=== PATIENT | female | born 1980 | race Two or more races ===

== ENCOUNTER → 2023-06-21 | Outpatient (CLI) | payer BC ==
[2023-06-21 08:13] LABS: Basophils # (auto) 0 10 ^3/uL (0-0.2); Basophils % (auto) 0.5 % (0.0-2.0); Eosinophils # (auto) 0 10 ^3/uL (0-0.8); Eosinophils % (auto) 1.2 % (0.0-7.0); Hematocrit 40.5 % (36.0-46.0); Hemoglobin 13.2 g/dL (12.2-16.2); Lymphocytes # (auto) 1.4 10 ^3/uL (0.4-5.4); Mean Corpuscular Hemoglobin 27.1 pg (28.0-32.0); Mean Corpuscular Hgb Conc. 32.7 g/dL (32.0-36.0); Mean Corpuscular Volume 82.8 fL (80.0-100.0); Monocytes # (auto) 0.3 10 ^3/uL (0-1.3); Monocytes % (auto) 9.1 % (0.0-12.0); Neutrophils % (auto) 52.2 % (37.0-80.0); Red Blood Cells 4.89 10^6/uL (4.0-5.20); Red Cell Distribution Width 15.4 % (11.8-14.3); White Blood Cell 3.8 10^3/uL (4.4-10.8)
[2023-06-21 08:37] LABS: Alanine Aminotransferase 32 U/L (7-40); Albumin 4.5 g/dL (3.2-4.8); Alkaline Phosphatase 87 U/L (46-116); Anion Gap 7 (5-15); Aspartate Aminotransferase 28 U/L (13-40); BUN/Creatinine Ratio 15.8 (10.0-20.0); Bilirubin, Total 0.7 mg/dL (0.2-1.0); Blood Urea Nitrogen 9 mg/dL (9-23); Calcium 9.3 mg/dL (8.5-10.1); Carbon Dioxide 27 mmol/L (20-30); Chloride 108 mmol/L (98-107); Cholesterol 175 mg/dL (< 200); Glucose 95 mg/dL (74-106); HDL Cholesterol 58 mg/dL (40-59); LDL Cholesterol 107 mg/dL (< 100); Potassium 3.8 mmol/L (3.5-5.1); Sodium 142 mmol/L (136-145); Total Protein 7.4 g/dL (5.7-8.2); Triglycerides 68 mg/dL (< 150)
[2023-06-21 08:38] LABS: % Iron Saturation 14.8 % (15-50)
[2023-06-21 09:01] LABS: Folate (Folic Acid) 19.88 ng/mL (>5.38)
[2023-06-21 09:02] LABS: Free T4 (Free Thyroxine) 1.03 ng/dL (0.89-1.76)
== END | disposition home or self-care (01) ==
LOC: LAB 07:57
PROVIDERS: ATTEND Nurse Practitioner Family
DX: E78.2 Mixed hyperlipidemia (principal); R73.03 Prediabetes; E55.9 Vitamin D deficiency, unspecified; D50.9 Iron deficiency anemia, unspecified; R79.89 Other specified abnormal findings of blood chemistry
CPT/HCPCS: 36415; 80053; 80061; 82306; 82607; 82746; 83036; 83540; 83550; 84439; 84443; 85025

== ENCOUNTER → 2023-11-07 | Outpatient (CLI) | payer BC ==
[2023-11-07 15:12] LABS: Follicle Stimulating Hormone 85.53 IU/L (SEE BELOW); Leuteinizing Hormone 34.9 IU/L
== END | disposition home or self-care (01) ==
LOC: LAB 14:31
PROVIDERS: ATTEND Obstetrics & Gynecology
DX: N95.1 Menopausal and female climacteric states (principal)
CPT/HCPCS: 36415; 82670; 83001; 83002; 84403; 84443

== ENCOUNTER → 2024-06-05 | Outpatient (CLI) | payer BC | END | disposition home or self-care (01) | LOC: LAB 09:44 | PROVIDERS: ATTEND Obstetrics & Gynecology | DX: Z01.419 Encounter for gynecological examination (general) (routine) without abnormal findings (principal); N39.0 Urinary tract infection, site not specified; R10.9 Unspecified abdominal pain | CPT/HCPCS: 87086 ==

== ENCOUNTER 2024-09-13 14:11 | Emergency (ER) | payer BC ==
[~2024-09-13] VITALS: Ht 162.6 cm; Wt 66.2 kg
[2024-09-13] MEDS ORDERED: SODIUM CHLORIDE 0.9% 1,000 ML IV ONE (14:45)
[2024-09-13 15:26] VITALS: BP 107/73; PULSE 70; RESP 16; TEMP 98.3; O2SAT 99
[2024-09-13] MEDS ORDERED: CEPH500C PO (15:32)
--- NOTE | 2024-09-13 15:33 | ED.PDOC ---
History of Present Illness HPI Comments A 43 YEAR OLD FEMALE PRESENTS TO THE ED WITH COMPLAINT OF FOREIGN OBJECT IN RIGHT EAR. PATIENT REPORTS RIGHT EARRING BEING STUCK SINCE THIS MORNING, WITH ASSOCIATED PAIN. PATIENT DENIES FEVER, CHILLS, SHORTNESS OF BREATH, CHEST PAIN, ABDOMINAL PAIN, NAUSEA, VOMITING, HEADACHE, OR OTHER COMPLAINTS. NO OTHER SYMPTOMS OR MODIFYING FACTORS AT THIS TIME. Chief Complaint: EARRING STUCK OF RIGHT EAR LOBE Time Seen by MD: 15:15 Primary Care Provider: SOLITARIO Reviewed Notes: Nurses Notes, Medications, Allergies Allergies: Coded Allergies: NO KNOWN ALLERGIES (Unverified , 09/13/24) Home Meds Active Scripts Cephalexin Monohydrate (Cephalexin) 500 Mg Cap, 1 CAP PO QID, #28 CAP Prov:MARCEL FERNANDEZ 09/13/24 Information Source: Patient Mode of Arrival: Ambulatory Severity: Moderate Duration: Since onset Prehospital treatment: None Medication Refill: For: Other (FOREIGN OBJECT ON RIGHT EAR LOBE ) Past Medical History PAST MEDICAL HISTORY: Denies Surgical History: Denies all surgeries SHOE REPAIRER HELPER History: No Pertinent SHOE REPAIRER HELPER History Social History Smoker: Non-Smoker Alcohol: Denies ETOH Use Drugs: Denies Drug Use Lives In: Home Constitutional: denies: chills, diaphoresis, fatigue, fever, malaise, sweats, weakness, others EENTM: reports: ear pain (RIGHT ), others (FOREIGN OBJECT IN RIGHT EAR); denies: blurred vision, double vision, ear bleeding, ear discharge, ear drainage, ear ringing, eye pain, eye redness, hearing loss, mouth pain, mouth sw elling, nasal discharge, nose bleeding, nose congestion, nose pain, photophobia, tearing, throat pain, throat swelling, voice changes Respiratory: denies: cough, hemoptysis, orthopnea, SOB at rest, shortness of breath, SOB with excertion, stridor, wheezing, others Cardiovascular: denies: chest pain, dizzy spells, diaphoresis, Dyspnea on e xertion, edema, irregular heart beat, left arm pain, lightheadedness, palpitations, PND, syncope, others Gastrointestinal: denies: abdomen distended, abdominal pain, blood streaked bowels, constipated, diarrhea, dysphagia, difficulty swallowing, hematemesis, melena, nausea, poor appetite, poor fluid intake, rectal bleeding, rectal pain, vomiting, others Genitourinary: denies: abnormal vagina bleeding, burning, dyspareunia, dysuria, flank pain, frequency, hematuria, incontinence, pain, , vagina discharge, urgency, others Neurological: denies: dizziness, fainting, headache, left sided numbness, left sided weakness, numbness, paresthesia, pre-existing deficit, right sided numbness, right sided weakness, seizure, speech problems, tingling, tremors, weakness, others Musculoskeletal: denies: back pain, gout, joint pain, joint swelling, muscle pain, muscle stiffness, neck pain, others Integumetry: denies: bruises, change in color, change in hair/nails, dryness, laceration, lesions, lumps, rash, wounds, others Allergic/Immunocompromised: denies: Difficulty Healing, Frequent Infections, Hives, Itching, others Hematologic/Lymphatic: denies: anemia, blood clots, easy bleeding, easy bruising, swollen glands, others Endocrine: denies: excessive hunger, excessive sweating, excessive thirst, excessive urination, flushing, intolerance to cold, intolerance to heat, unexplained weight gain, unexplained weight loss, others Psychiatric: denies: anxiety, bipolar disorder, depression, hopeless, panic disorder, schizophrenia, sleepless, suicidal, others All Other Systems: Reviewed and Negative (NEGATIVE UNLESS OTHERWISE STATED IN HPI OR ABOVE ) Physical Exam General Appearance: No Apparent Distress, Normal HEENT: Normal ENT Inspection, PERRL/EOMI, Pharynx Normal, TMs Normal, Other (A EARRING STUCK ON RIGHT EAR LOBE WITH MILD REDNESS AND TENDERNESS. ) Neck: Full Range of Motion, Non-Tender, Normal, Normal Inspection Respiratory: Chest Non-Tender, Lungs Clear, No Accessory Muscle Use, No Respiratory Distress, Normal Breath Sounds Cardiovascular: No Edema, No JVD, No Murmur, No Gallop, Normal Peripheral Pulses, Regular Rate/Rhythm Breast Exam: Deferred Gastrointestinal: No Organomegaly, Non Tender, No Pulsatile Mass, Normal Bowel Sounds, Soft Genitalia: Deferred Pelvic: Deferred Rectal: Deferred Extremities: No calf tenderness, Normal capillary refill, Normal inspection, Normal range of motion, Non-tender, No pedal edema Musculoskeletal : Apperance: Normal Neurologic: Alert, cross tie tram loader II-XII nml as Tested, No Motor Deficits, Normal Affect, Normal Mood, No Sensory Deficits Cerebellar Function: Normal Reflexes: Normal Skin: Dry, Normal Color, Warm, Other (LOCALIZED REDNESS AND TENDERNESS ON RIGHT EAR LOBE WITH EARRING STUCK, NO PUS DRAINAGE. ) Peripheral Pulses: 2+ carotid (R), 2+ carotid (L) Lymphatic: No Adenopathy Was a procedure done? Was a procedure done?: Yes Sedation Sedation?: Yes Informed consent obtained: Yes Sedation start time: 03:19 Sedation end time: 03:29 Sedation total time: 10 MINUTES Foreign Body Removal Foreign body in: Ear (RIGHT ) Anesthetic: Lidocaine (3ML OF 1%) Prep: Prep, Saline Procedure: Identified (EARRING ), Removed (RIGHT EARRING WITH A FORECEPS. ) Informed consent obtained: No Risks/benefits/alt described: Yes Differential Dx Considerations may include: FOREIGN OBJECT IN RIGHT EARLOBE, RIGHT EARRING REMOVAL X-Ray, Labs, Meds, VS Vital Signs Date Time Temp Pulse Resp B/P (MAP) Pulse Ox O2 Delivery O2 Flow Rate FiO2 09/13/24 15:26 70 16 99 Room Air 09/13/24 15:26 98.3 70 16 107/73 (84) 99 98.3 09/13/24 14:28 98.3 70 16 107/73 (84) 99 98.3 X-Ray, Labs, Meds, VS Comment EXTERNAL MEDICAL RECORDS REVIEWED: [NONE] INDEPENDENT HISTORIANS: [NONE] SOCIAL DETERMINANTS OF HEALTH: [NONE] LABS ORDERED: UA, BMP, CBC REVIEWED AND INTERPRETED RESULTS: NONE IMAGING ORDERED: NONE TREATMENTS ORDERED: LIDOCAINE 1%, HEPLOCK IV, NORMAL SALINE PROCEDURES PERFORMED: FOREIGN OBJECT REMOVAL FROM RIGHT EAR; OBJECT RIGHT EARRING CRITICAL CARE TIME: NONE I HAVE DISCUSSED THE PATIENT WITH THE ATTENDING PHYSICIAN DR. GREEN AND HE AGREES WITH THE PATIENT'S PLAN OF CARE AND DISPOSITION. BASED ON HISTORY OF PRESENT ILLNESS, AND PHYSICAL EXAM, PATIENT WILL BE DISCHARGED HOME. DISCUSSED PLAN FOR DISCHARGE HOME WITH RX KEFLEX ANTIBIOTIC. MEDICATION WARNINGS GIVEN. SHARED DECISION MAKING: DISCUSSED WITH PATIENT THAT THEIR WORKUP WAS NORMAL. PATIENT INSTRUCTED TO FOLLOW UP WITH PRIMARY CARE PROVIDER IN 1-2 DAYS FOR RE- EVALUATION OF SYMPTOMS. PATIENT VERBALIZES UNDERSTANDING TO RETURN TO ED FOR NEW OR WORSENING SYMPTOMS OR IF FOLLOW UP WITH PCP CANNOT BE OBTAINED. PATIENT FEELS COMFORTABLE GOING HOME AT THIS TIME. ALL QUESTIONS ADDRESSED AT TIME OF DISCHARGE. Time of 1ST Reevaluation: 15:46 Reevaluation 1ST: Improved Patient Education/Counseling: Diagnosis, Treatment, Need For Follow Up Family Education/Counseling: Diagnosis, Treatment, Need For Follow Up Medical Screening: No EMC Exist At This Time Departure 1 Departure Time of Disposition: 15:46 Impression: Primary Impression: Embedded earring of right ear Qualified Codes: S00.451A - Superficial foreign body of right ear, initial encounter Additional Impression: Suspected soft tissue infection Disposition: HOME / SELF CARE / HOMELESS Condition: Stable Additional Instructions: FOLLOW-UP WITH PCP IN 1 TO 2 DAYS. TAKE MEDICATIONS PRESCRIBED. RETURN TO ED FOR ANY NEW OR WORSENING SYMPTOMS. e-Prescriptions Cephalexin Monohydrate (Cephalexin) 500 Mg Cap 1 CAP PO QID, #28 CAP Prov: MARCEL FERNANDEZ 09/13/24 Discharged With: Self Critical Care Note Critical Care Time?: No Stability Stability form required: No Heart Score Heart Score: Heart Score Response (Comments) Value History N/A 0 EKG N/A 0 Age N/A 0 Risk Factors N/A 0 Troponin N/A 0 Total 0 I personally scribed for MARCEL FERNANDEZ ([email or web address]) on 09/13/24 at 15:33. Electronically submitted by Marcel Rubi ([email or web address]). MARCEL FERNANDEZ Sep 13, 2024 15:33
== END 2024-09-13 15:37 | disposition home or self-care (01) ==
LOC: ER 14:11
DX: S00.451A Superficial foreign body of right ear, initial encounter (principal); W45.8XXA Other foreign body or object entering through skin, initial encounter; Y93.89 Activity, other specified; Y92.89 Other specified places as the place of occurrence of the external cause; Y99.8 Other external cause status
CPT/HCPCS: 99152

== ENCOUNTER 2024-11-05 20:37 | Emergency (ER) | payer BC ==
[~2024-11-05] VITALS: Ht 162.6 cm; Wt 66.0 kg
[~2024-11-05 20:37] MED LIST: CEPH500C PO
--- NOTE | 2024-11-05 21:23 | ED.PDOC ---
HPI Allergic reaction HPI Comments 44-year-old female presents with a chief complaint of allergic reaction x onset 08:30pm. Patient mentions that she had a large tattoo done today from roughly 10am to 5pm today was the length of the session. Patient states that she was sitting watching TV when she began to feel hot all over and developed welts to her lower abdomen, chest, armpits, neck and arms. Patient reports that she took 25mg Benadryl and Ranitidine. Patient states that after administration of medications she is feeling improvement of symptoms. Patient denies any dizziness, weakness, SOB, or chest pain. Patient only has a known latex allergy. Vitals: temperature of 98.6F, pulse of 84, respiratory rate of 18, blood pr essure of 123/77, SpO2 of 98%RA PMHx: Denies PSHx: Denies Allergies: Latex HPI: Poor Historian. REVIEW OF SYSTEMS: CONSTITUTIONAL: Denies acute: fever, diaphoresis, chills, generalized weakness. HEAD: Denies acute: headache, photophobia Eyes: Denies acute: Double vision, vision loss, eye pain, eye discharge. EARS: Denies acute: tinnitus, hearing loss, ear discharge, ear pain, THROAT: Denies acute: sore throat, swelling, difficulty swallowing , pain with swallowing, change in voice. NECK: Denies acute: neck pain, neck swelling, stiff neck. HEART: Denies acute : chest pain, palpitations, LUNGS: Denies acute: SOB, wheezing, cough, hemoptysis ABDOMEN: Denies acute: abdominal pain, Nausea, Vomiting, diarrhea, melena , hematemesis, hematochezia SKIN: Denies acute: lesions, EXTREMITIES: Denies acute: calf pain, numbness, tingling, weakness, denies pain in extremity. Denies acute: Low back pain. Neuro: Denies acute: focal neurological deficit, motor or sensory focal neurological d eficit, tremors, seizure like activity, confusion, dizziness, change in mental status, loss of bowel or bladder function, cauda equina like symptoms. : Denies acute: dysuria, hematuria, flank pain, increase in urinary frequency. PSYCH: Denies acute: hallucination, suicidal ideation, homicidal ideation. FEMALE: Denies acute: abnormal vaginal bleeding, foul odor, unusual discharge. PHYSICAL EXAM: General: ----no----acute distress, awake and alert. Head: normocephalic, atraumatic. Neck: supple, trachea is midline, no swelling. Throat: Normal phonation. No swelling, no obstruction, Eyes:, no erythema, no purulent discharge, no proptosis, no icterus. Heart: regular rate, regular rhythm, no significant murmur appreciated. Lungs: no apparent respiratory distress, Able to speak in full sentences. No wheezing, no rhonchi, no crackles. No stridors Clear to auscultation bilaterally. Abdomen: non tender to palpation, non distended, soft, no guarding, no rebound, + bowel sounds. Neuro: Awake, Alert, oriented to name, self, situation, follows commands GCS=15. Speech is normal. Skin: no petechia, no purpura, no cyanosis, non-pale, not jaundice. Minimal residual redness still in some of the extremities and on the chest. Lower extremities: --no - Pitting edema no deformity, no focal swelling, no calf TTP. Makes eye contact. moves all four extremities. Face: no apparent facial droop. Ambulating in the ED independently. ED COURSE: Time Seen by MD: 21:13 Primary Care Provider: SOLITARIO Reviewed Notes: Nurses Notes, Medications, Allergies Allergies: Coded Allergies: Latex (Verified Allergy, Unknown, 11/05/24) Home Meds Active Scripts Prednisone (Prednisone) 20 Mg Tab, 40 MG PO DAILY for 5 Days, #10 TAB Prov:JARRED WESTON DO 11/05/24 Cephalexin Monohydrate (Cephalexin) 500 Mg Cap, 1 CAP PO QID, #28 CAP Prov:MARCEL FERNANDEZ 09/13/24 Past Medical History PAST MEDICAL HISTORY: Denies Surgical History: Denies all surgeries MSW History: No Pertinent MSW History Social History Smoker: Non-Smoker Alcohol: Denies ETOH Use Drugs: Denies Drug Use Lives In: Home Was a procedure done? Was a procedure done?: No Differential diagnosis (all) Differential Diagnosis: Anaphylaxis, Angioedema, Bronchospasm, Contact Dermatitis, Drug Reaction, Hypotension, Renal Failure, Respiratory Failure, Shock, Urticaria X-Ray, Labs, Meds, VS Vital Signs Date Time Temp Pulse Resp B/P (MAP) Pulse Ox O2 Delivery O2 Flow Rate FiO2 11/05/24 23:42 65 21 99 Room Air 11/05/24 23:42 98.7 65 21 110/78 (89) 99 98.7 11/05/24 21:25 98.6 84 18 123/77 (92) 97 98.6 11/05/24 21:25 18 100 Room Air* 0 21 11/05/24 21:25 18 98 Room Air* 0 21 Lab Test 11/05/24 21:16 Range/Units White Blood Count 9.7 4.4-10.8 10^3/uL Red Blood Count 5.47 H 4.0-5.20 10^6/uL Hemoglobin 11.3 L 12.2-16.2 g/dL Hematocrit 36.3 36.0-46.0 % Mean Corpuscular Volume 66.4 L 80.0-100.0 fL Mean Corpuscular Hemoglobin 20.7 L 28.0-32.0 pg Mean Corpuscular Hemoglobin Concent 31.2 L 32.0-36.0 g/dL Red Cell Distribution Width 19.0 H 11.8-14.3 % Platelet Count 322 140-450 10^3/uL Mean Platelet Volume 7.8 6.9-10.8 fL Neutrophils (%) (Auto) 81.2 H 37.0-80.0 % Lymphocytes (%) (Auto) 13.3 10.0-50.0 % Monocytes (%) (Auto) 5.2 0.0-12.0 % Eosinophils (%) (Auto) 0.2 0.0-7.0 % Basophils (%) (Auto) 0.1 0.0-2.0 % Neutrophils # (Auto) 7.9 1.6-8.6 10 ^3/uL Lymphocytes # (Auto) 1.3 0.4-5.4 10 ^3/uL Monocytes # (Auto) 0.5 0-1.3 10 ^3/uL Eosinophils # (Auto) 0 0-0.8 10 ^3/uL Basophils # (Auto) 0 0-0.2 10 ^3/uL Nucleated Red Blood Cells 0.1 % Sodium Level 141 136-145 mmol/L Potassium Level 3.7 3.5-5.1 mmol/L Chloride Level 108 H 98-107 mmol/L Carbon Dioxide Level 24 20-31 mmol/L Anion Gap 9 5-15 Blood Urea Nitrogen 13 9-23 mg/dL Creatinine 0.71 0.550-1.02 mg/dL Glomerular Filtration Rate Calc 107 >90 mL/min BUN/Creatinine Ratio 18.3 10.0-20.0 Serum Glucose 144 H 74-106 mg/dL Calcium Level 10.1 8.7-10.4 mg/dL Total Bilirubin 0.5 0.2-1.0 mg/dL Aspartate Amino Transferase (AST) 22 13-40 U/L Alanine Aminotransferase (ALT) 19 7-40 U/L Alkaline Phosphatase 100 46-116 U/L Troponin I High Sensitivity < 3 L </=34 ng/L Total Protein 7.9 5.7-8.2 g/dL Albumin 4.9 H 3.2-4.8 g/dL Current Medications Medications (Trade) Dose Ordered Sig/Dedrick Route Start Time Stop Time Status Last Admin Albuterol (Ventolin Medneb) 2.5 mg ONCE ONCE NEB 11/05/24 21:15 11/05/24 21:16 DC 11/05/24 21:25 Methylprednisolone Sodium Succinate (Solu Medrol) 125 mg ONCE ONCE IV 11/05/24 21:15 11/05/24 21:16 DC 11/05/24 22:25 Famotidine (Pepcid Injection) 20 mg ONCE ONCE IV 11/05/24 21:15 11/05/24 21:16 DC 11/05/24 22:25 Diphenhydramine HCl (Benadryl Injection) 25 mg ONCE ONCE IV 11/05/24 21:15 11/05/24 21:16 DC 11/05/24 22:25 Sodium Chloride 1,000 ml @ 1,000 mls/hr Q1H ONCE IV 11/05/24 21:15 11/05/24 22:14 DC 11/05/24 21:[address] [address] Ph: [phone] DIAGNOSTIC IMAGING Diagnostic Imaging Report : [id number] Signed PATIENT: ZAY ALBERTS ACCT: [id number] UNIT: [id number] : 1980 LOC: ER ROOM / BED: / AGE / SEX: 44 / F ADM STATUS: REG ER SERVICE 10 ORDERING PHYSICIAN: JARRED WESTON DO PROCEDURE(s): CXRP - CHEST PORTABLE REASON: Allergic reaction ORDER NUMBER(s): [id number], ACCESSION NUMBER(s): [id number] CHEST RADIOGRAPH Indication: Allergic reaction Technique: Single frontal view of the chest was obtained Comparison: None FINDINGS: Lines and Tubes: None Lungs: No focal consolidation. Pleura: No effusion. No pneumothorax. Cardiomediastinal contours: Unremarkable Bones: No acute osseous abnormality. IMPRESSION: 1. No acute cardiopulmonary disease. ATED BY: MONA YANG Jr., DO DICTATED DATE/TIME: 11/05/242136 SIGNED BY: MONA YANG Jr., SIGNED DATE/TIME: 11/05/242136 CC: Time of 1ST Reevaluation: 21:43 Reevaluation 1ST: Unchanged Time of 2ND Reevaluation: 22:27 Reevaluation 2ND: Improved Time of 3RD Reevaluation: 23:23 Reevaluation 3RD: Resolved Patient Education/Counseling: Diagnosis, Treatment Family Education/Counseling: No Family Present Comments Patient presented with the above HPI.---allergic reaction---workup was initiated. patient was found with the above mentioned diagnosis. the following medications were ordered: please refer to order lists of meds and tests obtained by myself Dr. Weston. Patient ED course and VS have been stabilized. Patient has been reassessed in the ED and remained in a stable condition. Pertinent incidental findings were discussed with the patient and/or family. Patient/family voices understanding and is agreeable with plan. Patient has been observed in the ED adequate length of time to insure improvement/stability. Escalation of care considered: Consideration of escalation to observation or admission Patient was DISCHARGED home in a stable condition. All the reports of any imaging studies that were ordered by myself were reviewed by myself. Departure 1 Departure Time of Disposition: 23:23 Impression: Primary Impression: Allergic reaction Additional Impression: Hives Disposition: 01 HOME / SELF CARE / HOMELESS Condition: Stable Additional Instructions: Additional instructions: You MUST follow-up with your primary care/family doctor in 1 to 2 days. If you are unable to see your primary care/family doctor, please return to our emergency room for re-assessment and re-evaluation in 1 to 2 days. Return to the emergency room here in our facility or to the nearest ER [facility] if your symptoms change or worsen. CONSULTATIONS: you MUST Follow-up for consultation as soon as possible with: -custodian manager in 1-2 days. Please call for appointment. You MUST call the consultants office yourself to make an appointment. You may need to arrange that through your insurance and/or your primary/family doctor. If you are unable to see the digital media sales consultant in 1 to 2 days, you must return to our emergency room (or any other ER of your choice) for re-assessment and re- evaluation. Adequate fluid hydration. Take the following [id number] medications daily for the next five days: Pepcid 20 mg one pill by mouth daily for the next five days Benadryl 25 mg one pill by mouth daily for the next five days You stated you already have an EpiPen at home e-Prescriptions Prednisone (Prednisone) 20 Mg Tab 40 MG PO DAILY for 5 Days, #10 TAB Prov: JARRED WESTON DO 11/05/24 Discharged With: Self Critical Care Note Critical Care Time?: Yes (30 min-critical care time only) I personally scribed for JARRED WESTON DO ([email or web address]) on 11/05/24 at 21:23. Electronically submitted by Masood Boswell ([email or web address]). I personally scribed for JARRED WESTON DO ([email or web address]) on 11/05/24 at 23:22. Electronically submitted by Marcel Rubi [email or web address]). JARRED WESTON DO November 05, 2024 21:23
[2024-11-05] MEDS: ALBUTEROL SULF 2.5 MG/0.5ML(0.5%) NEB SOLN NEB ONE (21:25)
[2024-11-05] MEDS: SODIUM CHLORIDE 0.9% 1,000 ML IV ONE (21:30)
[2024-11-05 21:33] LABS: Basophils # (auto) 0 10 ^3/uL (0-0.2); Basophils % (auto) 0.1 % (0.0-2.0); Eosinophils # (auto) 0 10 ^3/uL (0-0.8); Eosinophils % (auto) 0.2 % (0.0-7.0); Hematocrit 36.3 % (36.0-46.0); Hemoglobin 11.3 g/dL (12.2-16.2); Lymphocytes # (auto) 1.3 10 ^3/uL (0.4-5.4); Lymphocytes % (auto) 13.3 % (10.0-50.0); Mean Corpuscular Hemoglobin 20.7 pg (28.0-32.0); Mean Corpuscular Hgb Conc. 31.2 g/dL (32.0-36.0); Mean Corpuscular Volume 66.4 fL (80.0-100.0); Monocytes # (auto) 0.5 10 ^3/uL (0-1.3); Monocytes % (auto) 5.2 % (0.0-12.0); Neutrophils # (auto) 7.9 10 ^3/uL (1.6-8.6); Neutrophils % (auto) 81.2 % (37.0-80.0); Nucleated Red Blood Cells % 0.1 %; Platelet Count (auto) 322 10^3/uL (140-450); Red Blood Cells 5.47 10^6/uL (4.0-5.20); White Blood Cell 9.7 10^3/uL (4.4-10.8)
--- NOTE | 2024-11-05 21:39 | DVH ---
CHEST RADIOGRAPH Indication: Allergic reaction Technique: Single frontal view of the chest was obtained Comparison: None FINDINGS: Lines and Tubes: None Lungs: No focal consolidation. Pleura: No effusion. No pneumothorax. Cardiomediastinal contours: Unremarkable Bones: No acute osseous abnormality. IMPRESSION: 1. No acute cardiopulmonary disease.
[2024-11-05 21:47] LABS: Alanine Aminotransferase 19 U/L (7-40); Alkaline Phosphatase 100 U/L (46-116); Anion Gap 9 (5-15); Aspartate Aminotransferase 22 U/L (13-40); BUN/Creatinine Ratio 18.3 (10.0-20.0); Blood Urea Nitrogen 13 mg/dL (9-23); Calcium 10.1 mg/dL (8.7-10.4); Carbon Dioxide 24 mmol/L (20-31); Potassium 3.7 mmol/L (3.5-5.1); Sodium 141 mmol/L (136-145); Total Protein 7.9 g/dL (5.7-8.2)
[2024-11-05 21:48] LABS: Bilirubin, Total 0.5 mg/dL (0.2-1.0)
[2024-11-05 21:52] LABS: Albumin 4.9 g/dL (3.2-4.8); Chloride 108 mmol/L (98-107); Glucose 144 mg/dL (74-106)
[2024-11-05] MEDS: diphenhdrAMINE HCL 50 MG/1 ML VL IV ONE (22:25)
[2024-11-05] MEDS: FAMOTIDINE (10MG/ML) 2ML VL IV ONE (22:25)
[2024-11-05] MEDS: methylPREDNISolone SOD SUCC 125 MG/2 ML VL IV ONE (22:25)
[2024-11-05] MEDS ORDERED: PRED20TA2 PO (23:25)
[2024-11-05 23:42] VITALS: BP 110/78; PULSE 65; RESP 21; TEMP 98.7; O2SAT 99
== END 2024-11-05 23:47 | disposition home or self-care (01) ==
LOC: ER 20:37
DX: L50.9 Urticaria, unspecified (principal); Z79.52 Long term (current) use of systemic steroids; Z91.040 Latex allergy status
CPT/HCPCS: 36415; 71045; 80053; 84484; 85025; 94640; 96361; 96374; 96375; 99284; J1200; J2919; J3490; J7030

== ENCOUNTER 2024-12-16 11:06 | Outpatient (CLI) | payer BC ==
[~2024-12-16 11:06] MED LIST changes: +PRED20TA2 PO
[2024-12-16 11:42] LABS: Hematocrit 33.2 % (36.0-46.0); Hemoglobin 10.4 g/dL (12.2-16.2); Mean Corpuscular Hemoglobin 21.9 pg (28.0-32.0); Mean Corpuscular Volume 70.0 fL (80.0-100.0); Nucleated Red Blood Cells % 0.1 %
[2024-12-16 19:36] LABS: Iron 263.0 ug/dL (50-170); Total Iron Binding Capacity 441.0 ug/dL (250-425)
== END 2024-12-16 17:49 | disposition home or self-care (01) ==
LOC: LAB 11:06
PROVIDERS: ATTEND Nurse Practitioner Family
DX: D50.8 Other iron deficiency anemias (principal)
CPT/HCPCS: 36415; 83540; 83550; 85025

== ENCOUNTER 2024-12-30 07:40 | Outpatient (CLI) | payer BC ==
[2024-12-30 08:56] LABS: Hematocrit 36.0 % (36.0-46.0); Hemoglobin 11.7 g/dL (12.2-16.2); Mean Corpuscular Hemoglobin 23.4 pg (28.0-32.0); Mean Corpuscular Volume 71.9 fL (80.0-100.0); Nucleated Red Blood Cells % 0.0 %
[2024-12-30 09:17] LABS: Iron 202.0 ug/dL (50-170); Total Iron Binding Capacity 443.0 ug/dL (250-425)
== END 2024-12-30 17:00 | disposition home or self-care (01) ==
LOC: LAB 07:40
PROVIDERS: ATTEND Internal Medicine
DX: D50.9 Iron deficiency anemia, unspecified (principal); E55.9 Vitamin D deficiency, unspecified
CPT/HCPCS: 36415; 83540; 83550; 85025

== ENCOUNTER 2025-03-25 09:30 | Outpatient (CLI) | payer BC ==
[2025-03-25 09:51] LABS: Hematocrit 33.9 % (36.0-46.0); Hemoglobin 11.3 g/dL (12.2-16.2); Mean Corpuscular Hemoglobin 26.8 pg (28.0-32.0); Mean Corpuscular Volume 80.7 fL (80.0-100.0); Nucleated Red Blood Cells % 0.1 %
[2025-03-25 10:10] LABS: Alanine Aminotransferase 17 U/L (7-40); Albumin 4.3 g/dL (3.2-4.8); Alkaline Phosphatase 87 U/L (46-116); Anion Gap 10 (5-15); BUN/Creatinine Ratio 24.6 (10.0-20.0); Beta HCG, Quantitative 0.1 mIU/mL (1.5-4.2); Bilirubin, Total 0.4 mg/dL (0.2-1.0); Blood Urea Nitrogen 15 mg/dL (9-23); Calcium 8.9 mg/dL (8.7-10.4); Carbon Dioxide 27 mmol/L (20-31); Chloride 105 mmol/L (98-107); Glucose 85 mg/dL (74-106); Potassium 3.5 mmol/L (3.5-5.1); Sodium 142 mmol/L (136-145); Total Protein 7.3 g/dL (5.7-8.2)
[2025-03-25 10:11] LABS: Thyroid Stimulating Hormone 0.93 uIU/mL (0.55-4.78)
[2025-03-25 10:28] LABS: Iron 171.0 ug/dL (50-170)
[2025-03-25 10:30] LABS: Total Iron Binding Capacity 417.0 ug/dL (250-425)
[2025-03-25 10:34] LABS: Free T4 (Free Thyroxine) 1.06 ng/dL (0.89-1.76)
[2025-03-25 10:35] LABS: Ferritin 8.9 ng/mL (10-291); Follicle Stimulating Hormone 15.5 IU/L (SEE BELOW)
== END 2025-03-25 17:00 | disposition home or self-care (01) ==
LOC: LAB 09:30
PROVIDERS: ATTEND Obstetrics & Gynecology
DX: E28.2 Polycystic ovarian syndrome (principal); N95.0 Postmenopausal bleeding; D64.9 Anemia, unspecified
CPT/HCPCS: 36415; 80053; 82607; 82626; 82670; 82728; 82746; 83001; 83002; 83036; 83540; 83550; 84146; 84402; 84403; 84439; 84443; 84702; 85025

== ENCOUNTER 2025-04-24 06:43 | Day surgery (SDC) | payer BC ==
--- NOTE | 2025-04-21 16:40 | DVHHP ---
ADMIT DATE: 04/24/2025 CHIEF COMPLAINT: Heavy bleeding and abnormal Pap smear. HISTORY OF PRESENT ILLNESS: The patient is a 44-year-old 4, para 4, admitted for D and C, hysteroscopy, endometrial ablation, and LEAP biopsy. The patient has had some heavy bleeding. She is not menopausal. Her ultrasound reveals 10 x 6 x 7 cm uterus, 3 cm fibroid is noted. Endometrial thickness is 1 cm. Her Pap was ASCUS with HPV positive. PAST MEDICAL HISTORY: None. PAST SURGICAL HISTORY: x 4, gastric sleeve, abdominoplasty. SOCIAL HISTORY: None. FAMILY HISTORY: None. OBSTETRIC AND GYNECOLOGIC HISTORY: Four sections. ALLERGIES: AMOXICILLIN AND LATEX. REVIEW OF SYSTEMS: Consistent with HPI. PHYSICAL EXAMINATION: VITAL SIGNS: Stable, afebrile. HEENT: Within normal limits. CARDIOVASCULAR: Regular rate and rhythm. LUNGS: Clear to auscultation. BREASTS: No masses. ABDOMEN: Soft, nontender. PELVIC: External genitalia within normal limits. Vagina normal. Cervix grossly normal appearing. Cervix, stenotic uterus, 10-week size. Adnexa nonpalpable. EXTREMITIES: No clubbing, cyanosis, or edema. IMPRESSION: * Abnormal uterine bleeding. * Normal endometrial biopsy. * Abnormal Pap, ASCUS with positive HPV. PLAN: D and C, hysteroscopy, endometrial ablation, LEAP cone biopsy. Informed consent obtained. Risks and complications of surgery including infection, bleeding, hematoma formation, perforation of uterus, and risks of anesthesia discussed with the patient. Options reviewed. All questions answered. The patient has a hard time for any kind of procedure in the office. That is why she has opted to have LEAP biopsy. Risks, complications, and alternatives discussed with the patient. The patient wishes to proceed with planned procedure. DO KATHY Farfan/YING TID: [id number] RECEIPT: [id number]
[2025-04-23 11:38] LABS: Urine Protein, UAD Negative (Negative)
[2025-04-23 11:43] LABS: Hematocrit 30.1 % (36.0-46.0); Hemoglobin 9.6 g/dL (12.2-16.2); INR 1.06 (0.9-1.15); Mean Corpuscular Hemoglobin 24.8 pg (28.0-32.0); Mean Corpuscular Volume 77.4 fL (80.0-100.0); Nucleated Red Blood Cells % 0.0 %; Partial Thromboplastin Time 25.8 SEC (24.5-34.5); Prothrombin Time 11.2 sec (9.3-11.8)
[2025-04-23 12:13] LABS: Alanine Aminotransferase 37 U/L (7-40); Albumin 4.4 g/dL (3.2-4.8); Alkaline Phosphatase 90 U/L (46-116); Anion Gap 9 (5-15); BUN/Creatinine Ratio 30.8 (10.0-20.0); Bilirubin, Total 0.4 mg/dL (0.2-1.0); Blood Urea Nitrogen 16 mg/dL (9-23); Calcium 8.9 mg/dL (8.7-10.4); Carbon Dioxide 26 mmol/L (20-31); Chloride 106 mmol/L (98-107); Potassium 3.6 mmol/L (3.5-5.1); Sodium 141 mmol/L (136-145); Total Protein 7.4 g/dL (5.7-8.2)
[2025-04-23 12:14] LABS: Glucose 72 mg/dL (74-106)
[~2025-04-24] VITALS: Ht 162.6 cm; Wt 65.8 kg
[~2025-04-24 06:43] MED LIST changes: +ASCOCRY2 OR; -CEPH500C PO; +PHEN-1325 PO; -PRED20TA2 PO; +[UNRECOGNIZED DRUG - CODE] PO
[2025-04-24] MEDS ORDERED: ceFAZolin 2 GM/D5W50ml 50 ML IV ONE (07:05)
[2025-04-24] MEDS ORDERED: KETAMINE 50mg/ML 1ml syringe ONE (07:27)
[2025-04-24] MEDS ORDERED: MEPERIDINE HCL (25 MG/ML) 1ML VIAL ONE (07:27)
[2025-04-24] MEDS ORDERED: fentaNYL CITRATE 100 MCG/2 ML VL ONE (07:27)
[2025-04-24] MEDS ORDERED: LIDOCAINE 1% INJ PF 5ML AMP ONE (07:27)
[2025-04-24] MEDS ORDERED: SODIUM CHLORIDE LOCK 10 ML ONE (07:27)
[2025-04-24] MEDS ORDERED: PROPOFOL 10 MG/ML 20 ML IV ONE (07:27)
[2025-04-24] MEDS ORDERED: MIDAZOLAM HCL 2MG/2ML 2ml VIAL (1mg/ml) ONE (07:27)
[2025-04-24] MEDS ORDERED: ONDANSETRON HCL 4 MG/2 ML VIAL ONE (07:27)
[2025-04-24] MEDS ORDERED: METOCLOPRAMIDE HCL 5MG/ml INJ 2ml VIAL IV PRN (08:00)
[2025-04-24] MEDS ORDERED: KETOROLAC TROMETH 30 MG/ML 1ML VIAL IV ONE (08:00)
[2025-04-24] MEDS ORDERED: HYDROmorphone HCL 2 MG/ML VL/or syr IV PRN ×2 (08:00)
[2025-04-24] MEDS ORDERED: MORPHINE SULFATE 4 MG/ML SYR/VIAL IV PRN (08:00)
[2025-04-24] MEDS: FERRIC SUBSULFATE TOPICAL SOLN 30 ML BTL ONE (08:30)
[2025-04-24] MEDS ORDERED: MORPHINE SULFATE INJ 2 MG/ml SYRG IV PRN (08:41)
[2025-04-24 08:44] VITALS: PULSE 82; RESP 12; TEMP 97.4; O2SAT 98
--- NOTE | 2025-04-24 08:46 | DVHDS2 ---
Physician Discharge Progress N Final Diagnosis: AUB,ABN PAP Operations or Procedures: Operations or Procedures LEEP,D AND C,HYSTEROSCOPY ENDOMETRIAL ABLATION Condition on Discharge: Good Disposition: Home Discharge Instructions: Diet: Regular Activity: No Restrictions, As Tolerated Medications: AMANDA ANGUIANO Follow Up Care: Specialist: ANAMIKA MURPHY Discharge Statement: "Patient was advised to return to the ER or call 911 if any headaches, dizziness, shortness of breath, chest pain, abdominal pain, bleeding, fevers, or worsening of medical condition. Patient was counseled about treatment plan, medications, possible side effects, patientverbalized understanding. All questions were answered to the best of my ability. This discharge took greater then 30 minutes in planning, reviewing documentation, counseling the patient, and discussing with other team members." Visit Coding OBGYN Date of Service: Apr 24, 2025 Billing Provider: RAOUL GONZALES DO PHOTOGRAPHER PORTRAIT Common Visit Codes: 48125-[id number] INP/OBS CARE (HIGH), 33702-CFQ/OBS DISCH DAY >30MIN RAOUL GONZALES DO Apr 24, 2025 08:46
--- NOTE | 2025-04-24 08:54 | DVHOP2 ---
Operative Report DATE OF OPERATION: 04/24/25 PREOPERATIVE DIAGNOSES: 1. Abnormal uterine bleeding 2. ABNORMAL PAP POSTOPERATIVE DIAGNOSES: 1. Abnormal uterine bleeding 2. SAME SURGEON: Raoul Camara D.O. ANESTHESIOLOGIST: CHERI TYPE OF ANESTHESIA : MAC CONSENT: The patient was informed of the risks and benefits of the procedure. The patient was informed of the risks and benefits of the procedure. These include but are not limited to , complications of anesthesia, postoperative infection, incomplete relief of symptoms, recurrence of symptoms, damage to blood vessels, nerves and tendons, deep venous thrombosis, pulmonary embolism and possible need for repeat surgery in the future. FINDINGS: Cervix was bulky. Large lesion at the cervical opening and lesion appeared pedunculated. Removed easily by twisting. uterus is of 8 weeks size. No evidence of polyp or myoma. PROCEDURES: Dilation and Curettage, hysteroscopy ENDOMETRIAL ABLATION,, LEEP cone biopsy, PROCEDURE IN DETAIL: The patient was taken to the operating room where she was placed under MAC anesthesia. She was then prepped and draped in the usual sterile manner in the dorsal lithotomy position. Bladder was emptied using a straight catheter. Examination under anesthesia revealed the above findings. A weighted speculum was placed in the vagina. Anterior lip of the cervix was grasped using a single-tooth tenaculum. Cervix was dilated. Uterus sounded to 8 cm. HYSTEROSCOPE WAS INSERTED AFTER DILATING THE CX AND NL FINDINGS WAS NOTED IN THE UTERUS.EMC WAS OBTAINED THEN ABLATION PORTION OF THE PROCEDURE WAS DONE.THEN LEEP PROCEDURE WAS PERFORMED WHERE LUGOL SOLUTUION WAS APPLIED AND PORTION OF CX FOLLOWED BY ECC WAS OBTAINED USING LOOP ELECTRODE.THE DENUDED BASE WAS CAUTERIZED USING BALL CAUTERY .LEEP of the cervix was performed. Outer portion of the cervix was circumferentially excised using 20 x 15 mm loop and inner smaller loop was used for in her cervical tissue. The specimen was labeled separately and sent for pathology. The denuded base was then cauterized using bulb cautery. All instruments were removed from vagina and cervix. Monsel solution was applied. Good hemostasis was noted. The patient was taken to the recovery room in stable condition ESTIMATED BLOOD LOSS: EBL was 20 mL. Visit Coding OBGYN Date of Service: Apr 24, 2025 Billing Provider: RAOUL CAMARA DO [employer] OPERATOR Common Visit Codes: [id number] INP/OBS CARE (HIGH) [employer] OPERATOR Procedure Codes: 22269-GMPH BX, 38067-[id number], SURGICAL RAOUL CAMARA Apr 24, 2025 08:54
--- NOTE | 2025-04-24 08:56 | POSTOP ---
Post-Operative Note Post-Operative Note Preop Diagnosis ABN PAP,AUB Postop Diagnosis: AUB,ABN PAP Operation performed LEEP,D AND C,HYSTEROSCOPY ENDOMETRIAL ABLATION Specimen EMC,ECC Anesthesia: Mac Anesthesiologist: CHERI Blood Loss(fluid mgmt) 20ML Surgeon Raoul Camara Implant NA Complications & Mgmt NONE Date 04/24/25 Time 08:54 Visit Coding OBGYN Date of Service: Apr 24, 2025 Billing Provider: RAOUL CAMARA DO SIGNAL TESTER Common Visit Codes: 33670-[id number] INP/OBS CARE (HIGH) SIGNAL TESTER Procedure Codes: 65836-AVBD BX, 43143-[id number], SURGICAL RAOUL CAMARA DO Apr 24, 2025 08:56
[2025-04-24] MEDS ORDERED: ZOFR4T PO (08:58)
[2025-04-24] MEDS ORDERED: IBUP-1456 PO (08:58)
[2025-04-24] MEDS ORDERED: HYDR-4072 PO (08:58)
[2025-04-24] MEDS ORDERED: ONDANSETRON HCL 4 MG/2 ML VIAL IV PRN (09:00)
[2025-04-24] MEDS ORDERED: LACTATED RINGER'S 1,000 ML IV SCH (09:00)
[2025-04-24 09:29] VITALS: BP 113/68; PULSE 75; RESP 12; O2SAT 100
[2025-04-24] MEDS: IODINE STRONG 5% SOLN 473ML ONE (12:11)
== END 2025-04-24 09:45 | disposition home or self-care (01) ==
LOC: SUR 06:43
PROVIDERS: ATTEND Obstetrics & Gynecology
DX: N93.9 Abnormal uterine and vaginal bleeding, unspecified (principal); Z91.040 Latex allergy status; Z98.84 Bariatric surgery status; Z98.891 History of uterine scar from previous surgery; Z88.0 Allergy status to penicillin; Z79.899 Other long term (current) drug therapy; Z98.890 Other specified postprocedural states
CPT/HCPCS: 36415; 57522; 58563; 80053; 81001; 81025; 84702; 85025; 85610; 85730; 86850; 86900; 86901; 88305; 88307; 88341; 88342; J0690; J2175; J2250; J2405; J2704; J3010